=== PATIENT | male | born 1975 | race African-American/Black ===

== ENCOUNTER 2017-05-10 21:14 | Emergency (ER) | payer BC ==
[2017-05-10] MEDS: IV NORMAL SALINE 1000ML BAG 1,000 ML IV (22:31)
[2017-05-10] MEDS: diphenhydrAMINE 50 MG/ML VIAL IVP (22:31)
[2017-05-10] MEDS: PROCHLORPERAZINE 10 MG/2 ML VIAL. IV (22:31)
[2017-05-10] MEDS: KETOROLAC 30 MG/ML INJ. IV (22:31)
== END 2017-05-10 23:43 | disposition home or self-care (01) ==
LOC: ER 21:14
DX: G43.909 Migraine, unspecified, not intractable, without status migrainosus (principal); I10 Essential (primary) hypertension; F12.10 Cannabis abuse, uncomplicated
CPT/HCPCS: 96361; 96374; 96375; 99284-25; J0780; J1200; J1885; J7030

== ENCOUNTER 2017-10-22 14:23 | Emergency (ER) | payer BC ==
[2017-10-22] MEDS: diphenhydrAMINE 50 MG/ML VIAL IVP ×2 (14:45→15:49)
[2017-10-22] MEDS: DEXAMETHASONE SOD PHOS 4 MG/ML VIAL IV ×2 (14:45→15:49)
[2017-10-22] MEDS: ONDANSETRON PF 4 MG/2 ML VIAL. IV ×2 (14:45→15:49)
[2017-10-22] MEDS: KETOROLAC 30 MG/ML INJ. IV ×2 (14:45→15:50)
[2017-10-22] MEDS: IV NORMAL SALINE 1000ML BAG 1,000 ML IV ×2 (14:45→15:50)
[2017-10-22 14:46] LABS: ADD MAN DIFF? NO
[2017-10-22 14:53] LABS: BASO # 0.1 x10^3/uL (0.0-0.2); BASO % 1 % (0-3); EOS # 0.6 x10^3/uL (0.0-0.7); EOS % 4 % (0-3); HEMATOCRIT 48.6 % (39.0-53.0); HEMOGLOBIN 16.9 g/dL (13.0-17.5); LYMPH # 3.3 x10^3/uL (1.0-4.8); LYMPH % 24 % (24-48); MEAN CORPUSCULAR HEMOGLOBIN 32 pg (25-35); MEAN CORPUSCULAR HGB CONC 35 g/dL (31-37); MEAN CORPUSCULAR VOLUME 93 fL (79-100); MONO # 0.9 x10^3/uL (0.0-1.1); MONO % 6 % (0-9); NEUT # 8.7 x10^3uL (1.8-7.7); NEUT % 64 % (31-73); PLATELET COUNT 322 x10^3/uL (140-400); RED BLOOD COUNT 5.24 x10^6/uL (4.30-5.70); RED CELL DISTRIBUTION WIDTH 13.5 % (11.5-14.5); WHITE BLOOD COUNT 13.5 x10^3/uL (4.0-11.0)
[2017-10-22 14:59] LABS: ANION GAP 8 (6-14); BLOOD UREA NITROGEN 11 mg/dL (8-26); BUN/CREATININE RATIO 12 (6-20); CALCIUM 8.3 mg/dL (8.5-10.1); CARBON DIOXIDE 27 mmol/L (21-32); CHLORIDE 104 mmol/L (98-107); CREATININE 0.9 mg/dL (0.7-1.3); GFR 110.9; GLUCOSE 104 mg/dL (70-99); SODIUM 139 mmol/L (136-145)
[2017-10-22 15:06] LABS: ALBUMIN 3.9 g/dL (3.4-5.0); ALBUMIN/GLOBULIN RATIO 1.2 (1.0-1.7); ALK PHOS 77 U/L (46-116); ALT (SGPT) 43 U/L (16-63); AST (SGOT) 24 U/L (15-37); TOTAL BILIRUBIN 0.2 mg/dL (0.2-1.0); TOTAL PROTEIN 7.2 g/dL (6.4-8.2)
== END 2017-10-22 17:02 | disposition home or self-care (01) ==
LOC: ER 14:23
DX: G43.909 Migraine, unspecified, not intractable, without status migrainosus (principal); H53.149 Visual discomfort, unspecified; Z91.048 Other nonmedicinal substance allergy status
CPT/HCPCS: 36415; 80053; 85025; 96374; 96375; 99284; J1100; J1200; J1885; J2405; J7030

== ENCOUNTER 2018-09-27 23:18 | Emergency (ER) | payer BC ==
[~2018-09-27] VITALS: Ht 167.6 cm; Wt 72.6 kg
[2018-09-28] MEDS ORDERED: PROCHLORPERAZINE 10 MG/2 ML VIAL. IV ONE
[2018-09-28] MEDS ORDERED: KETOROLAC 15 MG/ML VIAL. IV ONE
[2018-09-28] MEDS ORDERED: diphenhydrAMINE 50 MG/ML VIAL IVP ONE
[2018-09-28 01:30] VITALS: BP 144/81
--- NOTE | 2018-09-28 02:04 | PHYS DOC ---
Past Medical History Past Medical History: Migraines Past Surgical History: No Surgical History Additional Past Surgical Histo: BACK SX 16 YEARS AGO Alcohol Use: Occasionally Drug Use: None Adult General Chief Complaint Chief Complaint: HEADACHE HPI HPI Patient is a 43 year old hx ofmigraine p/w headache normally has left side h/a with migraine, now with right side h/a but otherwise similar sharp radiates to quaker a/w photophobia and nausea no vomiting legs and arms feel normal onset 730 pm, not thunderclap worse now Review of Systems Review of Systems Constitutional: Denies fever or chills [] Eyes: Denies change in visual acuity, redness, or eye pain [] HENT: Denies nasal congestion or sore throat [] Respiratory: Denies cough or shortness of breath [] Cardiovascular: No additional information not addressed in HPI [] GI: Denies abdominal pain, vomiting, bloody stools or diarrhea [] : Denies dysuria or hematuria [] Musculoskeletal: Denies back pain or joint pain [] All other systems were reviewed and found to be within normal limits, except as documented in this note. Current Medications Current Medications Current Medications Medications (Trade) Dose Ordered Sig/Roselia Start Time Stop Time Status Last Admin Dose Admin Diphenhydramine HCl (Benadryl) 50 mg 1X ONCE 09/28/18 00:00 09/28/18 00:01 DC 09/28/18 00:05 50 MG Ketorolac Tromethamine (Toradol 15mg Vial) 15 mg 1X ONCE 09/28/18 00:00 09/28/18 00:01 DC 09/28/18 00:05 15 MG Prochlorperazine Edisylate (Compazine) 10 mg 1X ONCE 09/28/18 00:00 09/28/18 00:01 DC 09/28/18 00:05 10 MG Allergies Allergies Allergies Coded Allergies Type Severity Reaction Last Updated Verified calcium Allergy Unknown 10/22/17 Yes calcium carbonate Allergy Unknown 10/22/17 Yes prasterone (DHEA) Allergy Unknown 10/22/17 Yes Physical Exam Physical Exam Constitutional: Well developed, well nourished, no acute distress, non-toxic appearance. [] HENT: Normocephalic, atraumatic, bilateral external ears normal, oropharynx moist, no oral exudates, nose normal. [] Eyes: PERRLA, EOMI, conjunctiva normal, no discharge. [] Neck: Normal range of motion, no tenderness, supple, no stridor. [] Cardiovascular:Heart rate regular rhythm, no murmur [] Lungs & Thorax: Bilateral breath sounds clear to auscultation [] Abdomen: Bowel sounds normal, soft, no tenderness, no masses, no pulsatile masses. [] Skin: Warm, dry, no erythema, no rash. [] Back: No tenderness, no CVA tenderness. [] Extremities: No tenderness, no cyanosis, no clubbing, ROM intact, no edema. [] Neurologic: Alert and oriented X 3, normal motor function, normal sensory function, no focal deficits noted. [] Psychologic: Affect normal, judgement normal, mood normal. [] Current Patient Data Vital Signs Vital Signs Date Time Temp Pulse Resp B/P (MAP) Pulse Ox O2 Delivery O2 Flow Rate FiO2 09/28/18 01:30 88 17 98 09/27/18 23:45 97.9 168/89 (115) Room Air 97.9 EKG EKG [] Radiology/Procedures Radiology/Procedures [] Course & Med Decision Making Course & Med Decision Making Pertinent Labs and Imaging studies reviewed. (See chart for details) 43 yo m p/w h/a likely migraine neuro intact resolution with migraine cocktail no red flags long hx of migraine Dragon Disclaimer Dragon Disclaimer This electronic medical record was generated, in whole or in part, using a voice recognition dictation system. Departure Departure Impression: Primary Impression: Migraine Disposition: 01 HOME, SELF-CARE Condition: STABLE Patient Instructions: Migraine Headache, [id number] PATTI BRICENO MD Sep 28, 2018 02:04
[2018-09-28] MEDS ORDERED: AMOX875T PO (23:51)
[2018-09-29] MEDS ORDERED: AMOX1TAB61 PO (00:07)
== END 2018-09-28 01:23 | disposition home or self-care (01) ==
LOC: ER 23:18
DX: G43.909 Migraine, unspecified, not intractable, without status migrainosus (principal); Z88.8 Allergy status to other drugs, medicaments and biological substances
CPT/HCPCS: 96374; 96375; 99284; J0780; J1200; J1885

== ENCOUNTER 2018-11-21 01:22 | Emergency (ER) | payer BC ==
[~2018-11-21] VITALS: Ht 170.2 cm; Wt 72.6 kg
[~2018-11-21 01:22] MED LIST: AMOX1TAB61 PO; AMOX875T PO
[2018-11-21] MEDS ORDERED: KETOROLAC 30 MG/ML VIAL. IM ONE (02:15)
[2018-11-21] MEDS ORDERED: PROCHLORPERAZINE 10 MG/2 ML VIAL. IM ONE (02:15)
[2018-11-21] MEDS ORDERED: diphenhydrAMINE 50 MG/ML VIAL IM ONE (02:15)
--- NOTE | 2018-11-21 02:57 | PHYS DOC ---
Past Medical History Past Medical History: Migraines Past Surgical History: Other Additional Past Surgical Histo: BACK SX 16 YEARS AGO Alcohol Use: Occasionally Drug Use: Marijuana Adult General Chief Complaint Chief Complaint: HEADACHE HPI HPI Patient is a 43 year old male who presents with headache. History of migraines this headache feels like somebody is stabbing him all over the top of his head. Has been intermittent throughout the day gradually worsening in nature he took his usual medications at home with minimal relief. These are multiple times in the past for very similar symptoms. Review of Systems Review of Systems Constitutional: Denies fever or chills [] Current Medications Current Medications Current Medications Medications (Trade) Dose Ordered Sig/Roselia Start Time Stop Time Status Last Admin Dose Admin Diphenhydramine HCl (Benadryl) 50 mg 1X ONCE 11/21/18 02:15 11/21/18 02:16 DC 11/21/18 02:34 50 MG Ketorolac Tromethamine (Toradol 30mg Vial) 30 mg 1X ONCE 11/21/18 02:15 11/21/18 02:16 DC 11/21/18 02:34 30 MG Prochlorperazine Edisylate (Compazine) 10 mg 1X ONCE 11/21/18 02:15 11/21/18 02:16 DC 11/21/18 02:33 10 MG Allergies Allergies Allergies Coded Allergies Type Severity Reaction Last Updated Verified calcium Allergy Unknown 10/22/17 Yes calcium carbonate Allergy Unknown 10/22/17 Yes prasterone (DHEA) Allergy Unknown 10/22/17 Yes Physical Exam Physical Exam Constitutional: Well developed, well nourished, no acute distress, non-toxic appearance. [] HENT: Normocephalic, atraumatic, bilateral external ears normal, oropharynx moist, no oral exudates, nose normal. [] Eyes: PERRLA, EOMI, conjunctiva normal, no discharge. [] Neck: Normal range of motion, no tenderness, supple, no stridor. [] Cardiovascular:Heart rate regular rhythm, no murmur [] Lungs & Thorax: Bilateral breath sounds clear to auscultation [] Abdomen: Bowel sounds normal, soft, no tenderness, no masses, no pulsatile masses. [] Skin: Warm, dry, no erythema, no rash. [] Back: No tenderness, no CVA tenderness. [] Extremities: No tenderness, no cyanosis, no clubbing, ROM intact, no edema. [] Neurologic: Alert and oriented X 3, normal motor function, normal sensory function, no focal deficits noted. [] Psychologic: Affect normal, judgement normal, mood normal. [] Current Patient Data Vital Signs Vital Signs Date Time Temp Pulse Resp B/P (MAP) Pulse Ox O2 Delivery O2 Flow Rate FiO2 11/21/18 01:27 97.9 60 14 150/90 (110) 96 Room Air 97.9 EKG EKG [] Radiology/Procedures Radiology/Procedures [] Course & Med Decision Making Course & Med Decision Making Pertinent Labs and Imaging studies reviewed. (See chart for details) []usual migraine cocktail no red flags not thunderclap did get a little bit of relief from the alcohol swab he breathed in better after cocktail d/c home Dragon Disclaimer Dragon Disclaimer This electronic medical record was generated, in whole or in part, using a voice recognition dictation system. Departure Departure Impression: Primary Impression: Migraine headache Disposition: HOME, SELF-CARE Condition: STABLE Referrals: CLAUDIA GONZALEZ MD (PCP) Patient Instructions: Migraine Headache, [id number] PATTI BRICENO MD Nov 21, 2018 02:57
[2018-11-21 03:30] VITALS: BP 134/59
== END 2018-11-21 03:37 | disposition home or self-care (01) ==
LOC: ER 01:22
DX: G43.909 Migraine, unspecified, not intractable, without status migrainosus (principal); Z88.8 Allergy status to other drugs, medicaments and biological substances
CPT/HCPCS: 96372; 99284; J0780; J1200; J1885

== ENCOUNTER 2020-02-07 17:49 | Emergency (ER) | payer BC, OTHER ==
[~2020-02-07] VITALS: Ht 170.2 cm; Wt 63.0 kg
--- NOTE | 2020-02-07 19:05 | ED.ADGEN ---
Past Medical History Past Medical History: Migraines Past Surgical History: Other Additional Past Surgical Histo: BACK SX 16 YEARS AGO Smoking Status: Current Every Day Smoker Alcohol Use: Occasionally Drug Use: Marijuana General Adult EDM: Chief Complaint: HEADACHE HPI: HPI: Patient is a 44-year-old male who is coming in for headache that is throbbing for the past 2 days. Is been taking his regular home meds without improvement. Has significant history of chronic migraines that is taking propranolol. Also is followed by a neurologist and receives Botox injections. Symptoms came on gradually and he denies trauma. Complains of photophobia and autophobia. Has h ad work-ups for his migraines in the past. This headache is consistent with his previous history of migraines Review of Systems: Review of Systems: Constitutional: Denies fever or chills. [] Eyes: Denies change in visual acuity. [] Photophobia HENT: Denies nasal congestion or sore throat. [] Respiratory: Denies cough or shortness of breath. [] Cardiovascular: Denies chest pain or edema. [] GI: Denies abdominal pain, nausea, vomiting, bloody stools or diarrhea. [] : Denies dysuria. [] Musculoskeletal: Denies back pain or joint pain. [] Integument: Denies rash. [] Neurologic: Denies focal weakness or sensory changes. [] Complaining of left- sided and frontal throbbing headache Endocrine: Denies polyuria or polydipsia. [] Lymphatic: Denies swollen glands. [] Psychiatric: Denies depression or anxiety. [] Allergies: Allergies: Allergies Coded Allergies Type Severity Reaction Last Updated Verified calcium Allergy Unknown 10/22/17 Yes calcium carbonate Allergy Unknown 10/22/17 Yes prasterone (DHEA) Allergy Unknown 10/22/17 Yes Physical Exam: PE: Constitutional: Well developed, well nourished, no acute distress, non-toxic appearance. [] HENT: Normocephalic, atraumatic, bilateral external ears normal, oropharynx moist, no oral exudates, nose normal. [] Eyes: PERRLA, EOMI, conjunctiva normal, no discharge. [] Neck: Normal range of motion, no tenderness, supple, no stridor. [] Cardiovascular:Heart rate regular rhythm, no murmur [] Lungs & Thorax: Bilateral breath sounds clear to auscultation [] Abdomen: Bowel sounds normal, soft, no tenderness, no masses, no pulsatile masses. [] Skin: Warm, dry, no erythema, no rash. [] Back: No tenderness, no CVA tenderness. [] Extremities: No tenderness, no cyanosis, no clubbing, ROM intact, no edema. [] Neurologic: Alert and oriented X 3, normal motor function, normal sensory function, no focal deficits noted. [] Psychologic: Affect normal, judgement normal, mood normal. [] Current Patient Data: Vital Signs: Vital Signs Date Time Temp Pulse Resp B/P (MAP) Pulse Ox O2 Delivery O2 Flow Rate FiO2 02/07/20 18:29 98.4 82 14 97/59 (72) 100 Room Air 98.4 EKG: EKG: [] Heart Score: Risk Factors: Risk Factors: DM, Current or recent (<one month) smoker, HTN, HLP, family history of CAD, obesity. Risk Scores: Score 0 - 3: 2.5% MACE over next 6 weeks - Discharge Home Score 4 - 6: 20.3% MACE over next 6 weeks - Admit for Clinical Observation Score 7 - 10: 72.7% MACE over next 6 weeks - Early Invasive Strategies Radiology/Procedures: Radiology/Procedures: [] Course & Med Decision Making: Course & Med Decision Making Discussed with patient medication treatment with IV medications versus IM. Patient is opting for IM medications and discharge, states he has somebody who can drive him home and help him so that he can get to bed. [] Dragon Disclaimer: Dragon Disclaimer: This electronic medical record was generated, in whole or in part, using a voice recognition dictation system. Departure Departure Impression: Primary Impression: Migraine headache Disposition: 01 DC HOME SELF CARE/HOMELESS Condition: STABLE Referrals: CLAUDIA GONZALEZ MD (PCP) Patient Instructions: Recurrent Migraine Headache MIKE RENO MD Feb 07, 2020 19:05
[2020-02-07] MEDS ORDERED: diphenhydrAMINE 50 MG/ML VIAL IM ONE (19:15)
[2020-02-07] MEDS ORDERED: METOCLOPRAMIDE HCL 10 MG/2 ML VIAL. IM ONE (19:15)
[2020-02-07] MEDS ORDERED: KETOROLAC 60 MG/2 ML VIAL. IM ONE (19:15)
[2020-02-07 19:21] VITALS: BP 116/68
== END 2020-02-07 19:31 | disposition home or self-care (01) ==
LOC: ER 17:49
DX: G43.909 Migraine, unspecified, not intractable, without status migrainosus (principal); H53.149 Visual discomfort, unspecified; F17.200 Nicotine dependence, unspecified, uncomplicated; F12.90 Cannabis use, unspecified, uncomplicated; Z98.890 Other specified postprocedural states; Z88.8 Allergy status to other drugs, medicaments and biological substances
CPT/HCPCS: 96372; 99284; J1200; J1885; J2765